=== PATIENT | male | born 1935 | race Two or more races ===

== ENCOUNTER 2017-08-01 06:17 | Inpatient (IN) | payer MEDICARE, OTHER ==
[~2017-08-01] VITALS: Ht 172.7 cm; Wt 79.6 kg
[2017-08-01] MEDS ORDERED: ALBUTEROL SULF 2.5 MG/0.5ML(0.5%) NEB SOLN NEB ONE (06:30)
[2017-08-01] MEDS ORDERED: IPRATROPIUM BROM 0.5 MG/2.5ML INH SOL NEB ONE (06:30)
[2017-08-01] MEDS ORDERED: ALBUTEROL SULF 2.5 MG/0.5ML(0.5%) NEB SOLN HHN ONE (07:15)
[2017-08-01] MEDS ORDERED: methylPREDNISolone SOD SUCC 125 MG/2 ML VL IV ONE (07:15)
[2017-08-01] MEDS ORDERED: IPRATROPIUM BROM 0.5 MG/2.5ML INH SOL HHN ONE (07:15)
[2017-08-01 07:26] LABS: Basophils # (auto) 0.1 uL; CONDITION Y; DEFINITIVE SEE PRINTOUT; Eosinophils # (auto) 0.8 uL; Eosinophils % (auto) 7.7 % (0.0-7.0); Hematocrit 49.5 % (41.0-53.0); Hemoglobin 16.5 g/dL (13.5-17.5); Lymphocytes # (auto) 2.1 uL; Lymphocytes % (auto) 19.8 % (10.0-50.0); Mean Corpuscular Hemoglobin 32.2 pg (28.0-32.0); Mean Corpuscular Hgb Conc. 33.3 g/dL (32.0-36.0); Mean Corpuscular Volume 96.8 fL (80.0-100.0); Mean Platelet Volume 10.2 fL (7.4-10.4); Monocytes # (auto) 0.9 uL; Monocytes % (auto) 8.8 % (0.0-12.0); Neutrophils # (auto) 6.7 uL; Neutrophils % (auto) 62.7 % (37.0-80.0); Platelet Count (auto) 166 10^3/uL (140-450); Red Cell Distribution Width 14.9 % (11.6-16.0); White Blood Cell 10.7 10^3/uL (4.4-10.8)
[2017-08-01 07:41] LABS: B-Type Natriuretic Peptide 22.2 pg/mL (0-100); Temperature: 22.2 C (20.0-25.0)
[2017-08-01 08:44] LABS: Potassium 3.8 mmol/L (3.5-5.1); Sodium 142 mmol/L (136-145)
[2017-08-01 08:45] LABS: Albumin 2.8 g/dL (3.4-5.0); Alkaline Phosphatase 92 U/L (45-117); Anion Gap 8 (5-15); Aspartate Aminotransferase 14 U/L (15-37); BUN/Creatinine Ratio 17.3; Bilirubin, Total 0.5 mg/dL (0.2-1.0); Blood Urea Nitrogen 22 mg/dL (7-18); Calcium 8.3 mg/dL (8.5-10.1); Carbon Dioxide 24 mmol/L (21-32); Chloride 110 mmol/L (98-107); GFR African American 70 mL/min; GFR Non-African American 58 mL/min; Glucose 104 mg/dL (74-106); Magnesium 2.3 mg/dL (1.6-2.6); Total Protein 6.2 g/dL (6.4-8.2)
[2017-08-01] MEDS ORDERED: ACETAMINOPHEN 325 MG TAB PO PRN (09:45)
[2017-08-01] MEDS ORDERED: TEMAZEPAM 15 MG CAP PO PRN (09:45)
[2017-08-01] MEDS ORDERED: DOCUSATE SOD 100 MG CAP PO PRN (09:45)
[2017-08-01] MEDS ORDERED: ONDANSETRON HCL 4 MG/2 ML VIAL IV PRN (09:45)
[2017-08-01] MEDS ORDERED: cefTRIAXone 1GM/50ML D5W 50 ML IV ONE (09:45)
[2017-08-01] MEDS ORDERED: ARTIFICIAL TEARS 15ml EACHEYE PRN (09:45)
[2017-08-01] MEDS ORDERED: MORPHINE SULF INJ 2 MG/ML SYRINGE 1ML IV PRN (09:45)
[2017-08-01] MEDS ORDERED: BUDESONIDE (INHALATION) 0.5 MG/2 ML NEB NEB ONE ×2 (10:00→10:15)
[2017-08-01] MEDS: BUDESONIDE (INHALATION) 0.5 MG/2 ML NEB NEB SCH ×2 (10:00→18:37)
[2017-08-01] MEDS: LOSARTAN POTASSIUM 50 MG TAB PO SCH (10:00)
[2017-08-01 10:05] VITALS: BP 90/54
[2017-08-01] MEDS: MULTIPLE VITAMIN TAB PO SCH (10:11)
[2017-08-01] MEDS: IPRATROPIUM BROM 0.5 MG/2.5ML INH SOL NEB SCH ×3 (10:50→23:59)
[2017-08-01] MEDS: ALBUTEROL SULF 2.5 MG/0.5ML(0.5%) NEB SOLN NEB SCH ×3 (10:50→23:59)
[2017-08-01] MEDS: BOOST PLUS 8 ounce PO SCH ×2 (12:00→18:19)
[2017-08-01] MEDS ORDERED: IPRIH IN (12:33)
[2017-08-01] MEDS ORDERED: FLUT0.0535 NAS (12:33)
[2017-08-01] MEDS ORDERED: ALBUAER3 IN (12:33)
[2017-08-01] MEDS ORDERED: ASPI325T25 PO (12:33)
[2017-08-01] MEDS ORDERED: LOSA50TA6 PO (12:33)
[2017-08-01] MEDS ORDERED: OMEP20CA74 PO (12:33)
[2017-08-01] MEDS ORDERED: B COTAB OR (12:33)
[2017-08-01 12:34] VITALS: BP 102/68
[2017-08-01 13:53] LABS: Urine Bilirubin Negative (Negative); Urine Blood Negative /uL (Negative); Urine Color Yellow (Yellow); Urine Glucose Normal (Normal); Urine Ketone Negative (Negative); Urine Mucus FEW (None Seen); Urine Nitrite Negative (Negative); Urine RBC 1 /hpf (0 - 3); Urine Squamous Epithelial Cell FEW /hpf (<5); Urine Urobilinogen Normal (Negative); Urine pH 5.5 (5.0-8.0)
[2017-08-01] MEDS: SODIUM CHLOR 0.9% PF (SALINE LOCK) 10ML VIAL IV SCH ×2 (16:24→22:18)
[2017-08-01 17:00] VITALS: BP 104/64
[2017-08-01 20:00] VITALS: BP 95/54
[2017-08-01 23:12] VITALS: BP 95/54
[2017-08-02] VITALS (7 sets, daily range): BP systolic 96–120; BP diastolic 48–71
[2017-08-02] MEDS: SODIUM CHLOR 0.9% PF (SALINE LOCK) 10ML VIAL IV SCH ×3 (06:00→22:34)
[2017-08-02] MEDS: BUDESONIDE (INHALATION) 0.5 MG/2 ML NEB NEB SCH ×2 (06:58→18:24)
[2017-08-02] MEDS: ALBUTEROL SULF 2.5 MG/0.5ML(0.5%) NEB SOLN NEB SCH ×3 (06:58→18:24)
[2017-08-02] MEDS: IPRATROPIUM BROM 0.5 MG/2.5ML INH SOL NEB SCH ×3 (06:58→18:24)
[2017-08-02 07:01] LABS: Hematocrit 45.3 % (41.0-53.0); Mean Corpuscular Hemoglobin 32.3 pg (28.0-32.0); Mean Corpuscular Hgb Conc. 33.2 g/dL (32.0-36.0); Mean Corpuscular Volume 97.6 fL (80.0-100.0); Mean Platelet Volume 9.9 fL (7.4-10.4); Platelet Count (auto) 127 10^3/uL (140-450); Red Cell Distribution Width 14.2 % (11.6-16.0); White Blood Cell 20.9 10^3/uL (4.4-10.8)
[2017-08-02 07:16] LABS: Albumin 2.5 g/dL (3.4-5.0); BUN/Creatinine Ratio 21.2; Bilirubin, Total 0.4 mg/dL (0.2-1.0); Calcium 8.6 mg/dL (8.5-10.1); Potassium 4.7 mmol/L (3.5-5.1); Total Protein 5.7 g/dL (6.4-8.2)
[2017-08-02 07:23] LABS: Metamyelocytes % 0; Myelocytes % 0; Promyelocytes % 0; Reactive Lymphocytes 0
[2017-08-02] MEDS: BOOST PLUS 8 ounce PO SCH ×3 (08:00→18:00)
[2017-08-02 08:24] LABS: Platelet Estimate Decreased
[2017-08-02] MEDS: cefTRIAXone 1GM/50ML D5W 50 ML IV SCH (08:57)
[2017-08-02] MEDS: LOSARTAN POTASSIUM 50 MG TAB PO SCH (10:38)
[2017-08-02] MEDS: MULTIPLE VITAMIN TAB PO SCH (10:38)
[2017-08-02] MEDS ORDERED: AZITHROMYCIN 250 MG TAB PO ONE (12:45)
[2017-08-03] MEDS: IPRATROPIUM BROM 0.5 MG/2.5ML INH SOL NEB SCH ×4 (01:10→18:41)
[2017-08-03] MEDS: ALBUTEROL SULF 2.5 MG/0.5ML(0.5%) NEB SOLN NEB SCH ×4 (01:10→18:41)
[2017-08-03 05:00] VITALS: BP 102/50
[2017-08-03] MEDS: BUDESONIDE (INHALATION) 0.5 MG/2 ML NEB NEB SCH ×2 (06:45→18:41)
[2017-08-03] MEDS: SODIUM CHLOR 0.9% PF (SALINE LOCK) 10ML VIAL IV SCH ×3 (06:52→22:03)
[2017-08-03 08:00] VITALS: BP 125/77
[2017-08-03] MEDS: BOOST PLUS 8 ounce PO SCH ×3 (08:00→18:00)
[2017-08-03] MEDS: cefTRIAXone 1GM/50ML D5W 50 ML IV SCH (08:43)
[2017-08-03 09:22] VITALS: BP 125/77
[2017-08-03] MEDS: AZITHROMYCIN 250 MG TAB PO SCH (09:39)
[2017-08-03] MEDS: MULTIPLE VITAMIN TAB PO SCH (09:39)
[2017-08-03 11:33] VITALS: BP 117/70
[2017-08-03] MEDS ORDERED: ASPirin 81 mg TAB PO ONE (14:30)
[2017-08-03 20:00] VITALS: BP 123/77
[2017-08-03] MEDS ORDERED: ALBUTEROL SULF 2.5 MG/0.5ML(0.5%) NEB SOLN NEB ONE (20:30)
[2017-08-03] MEDS: ATORVASTATIN 20 MG TAB PO SCH (22:03)
[2017-08-03 22:46] VITALS: BP 123/77
[2017-08-04] MEDS: IPRATROPIUM BROM 0.5 MG/2.5ML INH SOL NEB SCH ×4 (00:15→19:16)
[2017-08-04] MEDS: ALBUTEROL SULF 2.5 MG/0.5ML(0.5%) NEB SOLN NEB SCH ×4 (00:15→19:16)
[2017-08-04 05:51] VITALS: BP 112/64
[2017-08-04] MEDS: SODIUM CHLOR 0.9% PF (SALINE LOCK) 10ML VIAL IV SCH ×3 (06:00→21:14)
[2017-08-04 06:56] LABS: BUN/Creatinine Ratio 26.4; Calcium 8.4 mg/dL (8.5-10.1); Potassium 4.2 mmol/L (3.5-5.1)
[2017-08-04] MEDS: BUDESONIDE (INHALATION) 0.5 MG/2 ML NEB NEB SCH ×2 (07:39→19:15)
[2017-08-04] MEDS: BOOST PLUS 8 ounce PO SCH ×3 (08:00→18:22)
[2017-08-04 09:23] VITALS: BP 133/85
[2017-08-04] MEDS: SODIUM BICARBONATE 50ML VIAL 50 ML in D5W 5% 1,000 ML IV SCH ×2 (09:30→21:14)
[2017-08-04] MEDS ORDERED: ASPirin 81 mg TAB PO SCH (10:00)
[2017-08-04] MEDS: AZITHROMYCIN 250 MG TAB PO SCH (10:00)
[2017-08-04] MEDS: MULTIPLE VITAMIN TAB PO SCH (10:00)
[2017-08-04] MEDS ORDERED: IOHEXOL 350 MG/ML 100ML IJ ONE (10:12)
[2017-08-04] MEDS ORDERED: LIDOCAINE 2%HCL (LOCAL ANESTH.) INJ 20ML MDV ONE (10:13)
[2017-08-04 10:32] LABS: INR 0.98 (0.9-1.15); Prothrombin Time 10.7 sec (9.37-12.3)
[2017-08-04] MEDS ORDERED: MIDAZOLAM HCL 1MG/1ML-2 ML VIAL ONE (10:37)
[2017-08-04] MEDS ORDERED: VERAPAMIL 2.5MG/ML INJ 2ML VIAL IV ONE (10:38)
[2017-08-04] MEDS ORDERED: fentaNYL CITRATE 100 MCG/2 ML VL ONE (10:38)
[2017-08-04] MEDS ORDERED: SODIUM CHL 0.9% 0 ML ONE (10:38)
[2017-08-04] MEDS ORDERED: ANGIOMAX 250 MG VIAL IV ONE (10:38)
[2017-08-04] MEDS ORDERED: predniSONE 20 MG TAB PO ONE (11:45)
[2017-08-04] MEDS: HYDROcodone-ACET 5/325MG TAB PO PRN ×2 (13:54→18:37)
[2017-08-04] MEDS: guaiFENesin-DEXTROMETHORPHAN 5ML SYR PO PRN ×2 (13:54→18:37)
[2017-08-04 15:30] VITALS: BP 133/91
[2017-08-04 15:47] VITALS: BP 121/78
[2017-08-04] MEDS: ATORVASTATIN 20 MG TAB PO SCH (21:14)
[2017-08-04 22:00] VITALS: BP 126/81
[2017-08-05] MEDS: ALBUTEROL SULF 2.5 MG/0.5ML(0.5%) NEB SOLN NEB SCH ×3 (01:04→11:39)
[2017-08-05] MEDS: IPRATROPIUM BROM 0.5 MG/2.5ML INH SOL NEB SCH ×3 (01:04→11:39)
[2017-08-05 05:00] VITALS: BP 115/73
[2017-08-05] MEDS: SODIUM CHLOR 0.9% PF (SALINE LOCK) 10ML VIAL IV SCH (06:05)
[2017-08-05] MEDS: BUDESONIDE (INHALATION) 0.5 MG/2 ML NEB NEB SCH (06:15)
[2017-08-05] MEDS: SODIUM BICARBONATE 50ML VIAL 50 ML in D5W 5% 1,000 ML IV SCH (06:38)
[2017-08-05 06:39] LABS: Calcium 8.4 mg/dL (8.5-10.1); Potassium 4.5 mmol/L (3.5-5.1)
[2017-08-05 06:44] LABS: BUN/Creatinine Ratio 24.4
[2017-08-05] MEDS: BOOST PLUS 8 ounce PO SCH ×2 (08:00→12:00)
[2017-08-05 09:00] VITALS: BP 105/63
[2017-08-05] MEDS: AZITHROMYCIN 250 MG TAB PO SCH (09:35)
[2017-08-05] MEDS: MULTIPLE VITAMIN TAB PO SCH (09:35)
[2017-08-05] MEDS: guaiFENesin-DEXTROMETHORPHAN 5ML SYR PO PRN (09:36)
[2017-08-05] MEDS ORDERED: predniSONE 20 MG TAB PO SCH (10:00)
[2017-08-05] MEDS ORDERED: CLOPIDOGREL BISULFATE 75 MG TAB PO SCH (10:00)
[2017-08-05] MEDS ORDERED: NITROGLYCERIN 0.2MG/HR TOPICAL PATCH TD SCH (10:00)
[2017-08-05] MEDS ORDERED: ASPirin 81 mg TAB PO SCH (10:00)
[2017-08-05 13:00] VITALS: BP 143/91
[2017-08-05 14:25] VITALS: BP 143/91
[2017-08-05 16:58] VITALS: BP 120/75
== END 2017-08-05 17:20 | disposition home or self-care (01) | DRG 287 ==
LOC: ER 06:17 → OVERFLOW 06:18 → TELE-E-ADS 11:41 → WEST WING 16:39
PROVIDERS: ADMIT Internal Medicine; ATTEND Internal Medicine
PROC: 4A023N7 Measurement of Cardiac Sampling and Pressure, Left Heart, Percutaneous Approach (ICD-10-PCS; principal; 2017-08-04)
PROC: B2111ZZ Fluoroscopy of Multiple Coronary Arteries using Low Osmolar Contrast (ICD-10-PCS; 2017-08-04)
DX: I25.10 Atherosclerotic heart disease of native coronary artery without angina pectoris (principal); E44.0 Moderate protein-calorie malnutrition; J44.1 Chronic obstructive pulmonary disease with (acute) exacerbation; J45.901 Unspecified asthma with (acute) exacerbation; E83.51 Hypocalcemia; J20.9 Acute bronchitis, unspecified; N18.3 Chronic kidney disease, stage 3 (moderate); I12.9 Hypertensive chronic kidney disease with stage 1 through stage 4 chronic kidney disease, or unspecified chronic kidney disease; M10.9 Gout, unspecified; Z96.653 Presence of artificial knee joint, bilateral; N40.0 Benign prostatic hyperplasia without lower urinary tract symptoms; Z79.02 Long term (current) use of antithrombotics/antiplatelets; Z79.82 Long term (current) use of aspirin; Z79.899 Other long term (current) drug therapy; Z86.73 Personal history of transient ischemic attack (TIA), and cerebral infarction without residual deficits; Z87.891 Personal history of nicotine dependence; Z87.442 Personal history of urinary calculi; Z68.26 Body mass index [BMI] 26.0-26.9, adult
CPT/HCPCS: 36415; 71010; 71250; 80048; 80053; 80061; 81001; 83735; 83880; 84484; 85007; 85025; 85027; 85379; 85610; 87086; 93005; 93306; 93458; 94640; 94644; 94761; 96365; 96375; 97163; 99152; 99153; J0696; J2250